=== PATIENT | female | born 1935 | race Caucasian/White ===

== ENCOUNTER 2020-09-10 09:36 | Inpatient (IN) ==
[2020-09-10] MEDS ORDERED: NS 0.9% 1000 ml BAG 1,000 ML IV ONE (09:49)
[2020-09-10 10:38] LABS: INR 1.24 (0.82-1.09)
[2020-09-10 10:46] LABS: ALT 32 U/L (7-52); AST 56 U/L (13-39); Albumin/Globulin Ratio 1.3 (1-3); Alkaline Phosphatase 68 U/L (35-149); Anion Gap 9 mmol/L (2-11); Blood Urea Nitrogen 21 mg/dL (6-24); C Reactive Protein 108.01 mg/L (<8.01); CO2 Carbon Dioxide 26 mmol/L (22-32); Calcium 9.6 mg/dL (8.6-10.3); Chloride 97 mmol/L (101-111); EGFR African American 42.2 (>60); EGFR Non-African American 34.9 (>60); Globulin 3.2 g/dL (2-4); Glucose 166 mg/dL (70-100); Magnesium 1.8 mg/dL (1.9-2.7); Potassium 3.4 mmol/L (3.5-5.0); Sodium 132 mmol/L (135-145); Total Protein 7.2 g/dL (6.4-8.9)
[2020-09-10] MEDS ORDERED: Diltiazem IV push/loading dose 5 MG/ML 5 ML vial (25 mg) IV SLOW PU ONE (10:52)
[2020-09-10 10:55] LABS: Troponin I 0.03 ng/mL (<0.03)
[2020-09-10] MEDS ORDERED: Magnesium Sulfate IV 1GM/100ML 1 GM/100 ML BAG IV ONE (11:21)
[2020-09-10 12:05] LABS: ABS Lymphocytes 0.6 10^3/ul (1.0-4.8); ABS Monocytes 0.5 10^3/ul (0-0.8); Hematocrit 42 % (35-47); Hemoglobin 14.6 g/dL (12.0-16.0); Lymphocyte % 9.4 %; Mean Corpuscular HGB Conc 35 g/dL (31-36); Mean Corpuscular Hemoglobin 32 pg (27-31); Mean Corpuscular Volume 91 fL (80-97); Platelet Count 96 10^3/uL (150-450); Red Blood Count 4.61 10^6 /uL (3.70-4.87); Red Cell Distribution Width 14 % (10-15); White Blood Count 6.1 10^3/uL (3.5-10.8)
[2020-09-10] MEDS ORDERED: cefTRIAXone 1 gm/50 mL NS BAG 1 GM/50 ML BAG IV ONE (12:20)
[2020-09-10] MEDS ORDERED: Azithromycin 500 mg/250 ml NS 500 MG/250 ML BAG IVPB ONE (12:20)
[2020-09-10] MEDS: Potassium Chlor 10 meq TAB PO SCH ×2 (15:40→21:44)
[2020-09-10 17:49] LABS: Urine Appearance Cloudy; Urine Bilirubin Negative (Negative); Urine Blood 2+ (Negative); Urine Color Yellow; Urine Glucose Negative (Negative); Urine Ketones Negative (Negative); Urine Nitrite Negative (Negative); Urine Protein 1+(30 mg/dL) (Negative); Urine Specific Gravity 1.012 (1.002-1.030); Urine Urobilinogen Negative (Negative)
[2020-09-10 18:08] LABS: Urine Bacteria 1+ (Absent); Urine Red Blood Cell 3+(>10/hpf) (Absent); Urine White Blood Cell 1+(6-10/hpf) (Absent)
[2020-09-11 04:13] LABS: ABS Lymphocytes 1.3 10^3/ul (1.0-4.8); ABS Monocytes 0.7 10^3/ul (0-0.8); ABS Neutrophils 3.5 10^3/ul (1.5-7.7); Eosinophil % 0.4 %; Hematocrit 37 % (35-47); Hemoglobin 12.9 g/dL (12.0-16.0); Mean Corpuscular HGB Conc 35 g/dL (31-36); Mean Corpuscular Hemoglobin 32 pg (27-31); Mean Corpuscular Volume 92 fL (80-97); Nucleated Red Blood Cells % 0.1; Platelet Count 99 10^3/uL (150-450); Red Blood Count 4.07 10^6 /uL (3.70-4.87); Red Cell Distribution Width 14 % (10-15); White Blood Count 5.6 10^3/uL (3.5-10.8)
[2020-09-11 04:20] LABS: C Reactive Protein 89.68 mg/L (<8.01); Calcium 9.1 mg/dL (8.6-10.3); EGFR African American 64.5 (>60); EGFR Non-African American 53.3 (>60); Potassium 3.6 mmol/L (3.5-5.0)
[2020-09-11 08:06] LABS: TSH Ultra Thyroid Stim Horm 1.65 mcIU/mL (0.34-5.60)
[2020-09-11 08:08] LABS: Free T4 0.87 ng/dL (0.61-1.12)
[2020-09-11] MEDS: Potassium Chlor 10 meq TAB PO SCH (08:45)
[2020-09-11] MEDS ORDERED: cefTRIAXone 1 gm/50 mL NS BAG 1 GM/50 ML BAG IVPB SCH (12:00)
[2020-09-11 14:10] VITALS: BP 97/72
== END 2020-09-11 15:55 | disposition home or self-care (01) | DRG 309 ==
LOC: ED 09:36 → MEDTELE 12:30
PROVIDERS: ADMIT Internal Medicine; ATTEND Internal Medicine